=== PATIENT | male | born 1935 | race Caucasian/White ===

== ENCOUNTER 2018-06-07 06:50 | Day surgery (SDC) | payer OTHER ==
[~2018-06-07 06:50] MED LIST: COREG CR10 MG; COZAAR25 MG; DIGITEK125 MCG; FLOMAX; LASIX40 MG; MULTI VITAMINS W1 MG; SIMVASTATIN40 MG
== END 2018-06-07 17:00 | disposition home or self-care (01) ==
LOC: CIR.AMB 06:50 → LAB 13:12 → CIR.AMB 13:27
DX: C67.0 Malignant neoplasm of trigone of bladder (principal); C67.2 Malignant neoplasm of lateral wall of bladder

== ENCOUNTER 2018-06-14 09:12 | Emergency (ER) | payer OTHER ==
[~2018-06-14] VITALS: Ht 170.2 cm; Wt 54.4 kg
[2018-06-14] MEDS ORDERED: ULTRACET PO (13:53)
[2018-06-14] MEDS ORDERED: TRAMADOL HCL50 MG PO (13:55)
== END 2018-06-14 14:36 | disposition home or self-care (01) ==
LOC: ER 09:12
DX: G89.18 Other acute postprocedural pain (principal); R10.2 Pelvic and perineal pain; N39.0 Urinary tract infection, site not specified; N99.89 Other postprocedural complications and disorders of genitourinary system; Y83.8 Other surgical procedures as the cause of abnormal reaction of the patient, or of later complication, without mention of misadventure at the time of the procedure

== ENCOUNTER 2018-06-15 07:05 | Outpatient (CLI) | payer OTHER ==
[~2018-06-15 07:05] MED LIST changes: +TRAMADOL HCL50 MG PO; +ULTRACET PO
== END 2018-06-15 07:13 | disposition home or self-care (01) ==
LOC: LAB 07:05
DX: N39.0 Urinary tract infection, site not specified (principal)

== ENCOUNTER 2021-11-24 07:38 | Outpatient (CLI) | payer OTHER | END 2021-11-24 07:43 | disposition home or self-care (01) | LOC: LAB 07:38 | PROVIDERS: ATTEND Urology | DX: C67.8 Malignant neoplasm of overlapping sites of bladder (principal); N28.89 Other specified disorders of kidney and ureter ==

== ENCOUNTER 2021-12-30 08:04 | Day surgery (SDC) | payer OTHER ==
[~2021-12-30 08:04] MED LIST changes: +CANDESARTAN CILE8 MG PO; -LASIX40 MG; +LASIX40 MG PO
== END 2021-12-30 18:30 | disposition home or self-care (01) ==
LOC: CIR.AMB 08:04
PROVIDERS: ATTEND Urology
DX: C67.5 Malignant neoplasm of bladder neck (principal); N18.4 Chronic kidney disease, stage 4 (severe); I10 Essential (primary) hypertension; Z95.0 Presence of cardiac pacemaker; I25.10 Atherosclerotic heart disease of native coronary artery without angina pectoris; I25.2 Old myocardial infarction; Z87.891 Personal history of nicotine dependence

== ENCOUNTER 2022-01-07 23:48 | Emergency (ER) | payer OTHER ==
[~2022-01-07] VITALS: Ht 170.2 cm; Wt 68.9 kg
== END 2022-01-09 01:47 | disposition home or self-care (01) ==
LOC: ER 23:48
DX: C67.9 Malignant neoplasm of bladder, unspecified (principal); D64.9 Anemia, unspecified; R31.9 Hematuria, unspecified; N18.4 Chronic kidney disease, stage 4 (severe); T83.018A Breakdown (mechanical) of other urinary catheter, initial encounter

== ENCOUNTER 2022-03-30 10:48 | Outpatient (CLI) | payer OTHER | END 2022-03-30 13:55 | disposition home or self-care (01) | LOC: LAB 10:48 | PROVIDERS: ATTEND Radiology Diagnostic Radiology | DX: C67.9 Malignant neoplasm of bladder, unspecified (principal) ==

== ENCOUNTER 2022-04-12 07:17 | Emergency (ER) | payer OTHER ==
[~2022-04-12] VITALS: Ht 170.2 cm; Wt 53.5 kg
[2022-04-12] MEDS ORDERED: PERCOCET 5-3251 EACH PO (15:34)
== END 2022-04-12 15:55 | disposition home or self-care (01) ==
LOC: ER 07:17
DX: K62.89 Other specified diseases of anus and rectum (principal); K57.30 Diverticulosis of large intestine without perforation or abscess without bleeding; R10.9 Unspecified abdominal pain

== ENCOUNTER → 2022-05-07 10:46 | Outpatient (CLI) | payer OTHER ==
[~2022-05-07 10:46] MED LIST changes: +PERCOCET 5-3251 EACH PO
== END | disposition home or self-care (01) ==
LOC: LAB 10:46
PROVIDERS: ATTEND Urology
DX: D62 Acute posthemorrhagic anemia (principal)

== ENCOUNTER → 2022-05-13 | Outpatient (CLI) | payer OTHER | END | disposition home or self-care (01) | LOC: NUCLEAR 07:40 | PROVIDERS: ATTEND Urology | DX: C67.9 Malignant neoplasm of bladder, unspecified (principal) ==

== ENCOUNTER 2022-05-17 11:03 | Outpatient (CLI) | payer OTHER | END 2022-05-17 14:16 | disposition home or self-care (01) | LOC: LAB 11:03 | PROVIDERS: ATTEND Urology | DX: R97.20 Elevated prostate specific antigen [PSA] (principal); C61 Malignant neoplasm of prostate ==

== ENCOUNTER 2022-05-28 07:21 | Outpatient (CLI) | payer OTHER | END 2022-05-28 07:29 | disposition home or self-care (01) | LOC: SONOGRAMA 07:21 | PROVIDERS: ATTEND Urology | DX: R97.20 Elevated prostate specific antigen [PSA] (principal) ==

== ENCOUNTER 2022-06-04 09:57 | Outpatient (CLI) | payer OTHER | END 2022-06-04 10:00 | disposition home or self-care (01) | LOC: LAB 09:57 | PROVIDERS: ATTEND Urology | DX: I11.9 Hypertensive heart disease without heart failure (principal); N30.00 Acute cystitis without hematuria ==

== ENCOUNTER 2022-06-08 12:40 | Emergency (ER) | payer OTHER ==
[~2022-06-08] VITALS: Ht 170.2 cm; Wt 54.4 kg
== END 2022-06-08 14:18 | disposition home or self-care (01) ==
LOC: ER 12:40
DX: R33.9 Retention of urine, unspecified (principal); C61 Malignant neoplasm of prostate; C79.11 Secondary malignant neoplasm of bladder; C79.89 Secondary malignant neoplasm of other specified sites

== ENCOUNTER → 2022-06-08 | Outpatient (CLI) | payer OTHER | END | disposition home or self-care (01) | LOC: SONOGRAMA 10:47 | PROVIDERS: ATTEND Urology | DX: N18.9 Chronic kidney disease, unspecified (principal); N17.8 Other acute kidney failure; R10.9 Unspecified abdominal pain ==